=== PATIENT | male | born 1990 | race Two or more races ===

== ENCOUNTER 2023-06-06 22:21 | Emergency (ER) | payer OTHER ==
[~2023-06-06] VITALS: Ht 160 cm; Wt 62.6 kg
[2023-06-06] MEDS ORDERED: DEXAMETHAS0.5 MG/5 M (22:47)
[2023-06-06] MEDS ORDERED: MONTELUKAST SODI4 M1 PO (22:48)
[2023-06-06] MEDS ORDERED: AMOX1TAB5 PO (22:48)
[2023-06-06] MEDS ORDERED: [UNRECOGNIZED DRUG - OTHER] PO (22:48)
[2023-06-06] MEDS ORDERED: ZITHROMAX500 MG PO (22:48)
[2023-06-06 23:47] LABS: HEMATOCRIT 40.7 % (39.0-48.0); HEMOGLOBIN 13.1 g/dL (13-16.00); MEAN CELL VOLUME 91.8 fL (80.0-100.00); MEAN CORPUSCULAR HEMOGLOBIN 29.5 pg (27.00-32.0); MEAN CORPUSCULAR HGB CONC 32.1 g/dl (32.0-36.0); PLATELET COUNT 175 K/uL (150-450); RED BLOOD COUNT 4.43 M/uL (4.00-6.00); RED CELL DISTRIBUTION WIDTH 13.3 % (11.5-14.5)
== END 2023-06-07 01:30 | disposition home or self-care (01) ==
LOC: ER 22:21
PROVIDERS: General Practice
DX: J45.909 Unspecified asthma, uncomplicated (principal); Z20.822 Contact with and (suspected) exposure to COVID-19

== ENCOUNTER 2023-06-11 19:05 | Emergency (ER) | payer OTHER ==
[~2023-06-11] VITALS: Ht 157.5 cm; Wt 62.6 kg
[~2023-06-11 19:05] MED LIST: AMOX1TAB5 PO; DEXAMETHAS0.5 MG/5 M; MONTELUKAST SODI4 M1 PO; ZITHROMAX500 MG PO; [UNRECOGNIZED DRUG - OTHER] PO
[2023-06-11 20:29] LABS: HEMATOCRIT 44.6 % (39.0-48.0); HEMOGLOBIN 14.5 g/dL (13-16.00); MEAN CELL VOLUME 92.3 fL (80.0-100.00); MEAN CORPUSCULAR HGB CONC 32.5 g/dl (32.0-36.0); PLATELET COUNT 217 K/uL (150-450); RED BLOOD COUNT 4.84 M/uL (4.00-6.00); RED CELL DISTRIBUTION WIDTH 13.3 % (11.5-14.5)
[2023-06-11 23:35] LABS: ABG pCO2 32.4 mmHg (35-45)
[2023-06-11 23:36] LABS: ABG PO2 124.9 mmHg (80-100); BASE EXCESS -1.7 mmol/l; BICARBONATE 21.5 mmol/l (23-25); SaO2 98.9 %; Tco2 22.5 mmol/l
[2023-06-11 23:37] LABS: allen test SATISFACTORY; o2 21 %; puncture site RADIAL RIGHT
== END 2023-06-11 22:55 | disposition home or self-care (01) ==
LOC: ER 19:05
PROVIDERS: General Practice
DX: J11.1 Influenza due to unidentified influenza virus with other respiratory manifestations (principal)